=== PATIENT | female | born 1950 | race Caucasian/White ===

== ENCOUNTER 2016-03-31 17:38 | Emergency (ER) | payer OTHER, BC ==
[~2016-03-31] VITALS: Ht 175.3 cm; Wt 105.2 kg
[2016-03-31 17:50] VITALS: BP 132/81
[2016-03-31] MEDS ORDERED: NAPROXEN 500 MG TABLET PO STA (18:49)
--- NOTE | 2016-03-31 19:49 | PHYS DOC ---
Past Medical History Past Medical History: Hypertension, TIA Additional Past Medical Histor: HYPOGLYCEMIA Past Surgical History: Tubal ligation Alcohol Use: Rarely Drug Use: None Adult General Chief Complaint Chief Complaint: HIP PAIN HPI HPI Patient is a 65 year old female with a history of hypertension and TIA who presents today with mild left hip pain that began when she was ambulating in [employer] Patient states she believes she popped her hip out of line. Review of Systems Review of Systems Constitutional: Denies fever or chills [] Musculoskeletal: Left hip pain Integument: Denies rash or skin lesions [] Neurologic: Denies headache, focal weakness or sensory changes [] Endocrine: Denies polyuria or polydipsia [] Current Medications Current Medications Current Medications Medications (Trade) Dose Ordered Sig/Srinivas Start Time Stop Time Status Last Admin Dose Admin Naproxen (Naprosyn) 500 mg 1X STAT 03/31/16 18:49 03/31/16 18:50 DC 03/31/16 18:55 500 MG Allergies Allergies Allergies Coded Allergies Type Severity Reaction Last Updated Verified cetirizine Allergy Unknown PT STATES IT CAUSED HER TIA. 03/31/16 No Physical Exam Physical Exam Constitutional: Well developed, well nourished, no acute distress, non-toxic appearance. [] Skin: Warm, dry, no erythema, no rash. [] Back: No tenderness, no CVA tenderness. [] Extremities: Left hip with no obvious deformity, no edema or ecchymosis, tenderness on palpation of the left lateral hip. Full range of motion to the left hip, adequate internal rotation and external rotation of the hip. Adequate flexion and extension of the left lower extremity. +2 left pedal pulse. Sensation intact to the left lower extremity. Neurologic: Alert and oriented X 3, normal motor function, normal sensory function, no focal deficits noted. [] Psychologic: Affect normal, judgement normal, mood normal. [] Current Patient Data Vital Signs Vital Signs Date Time Temp Pulse Resp B/P Pulse Ox O2 Delivery O2 Flow Rate FiO2 03/31/16 17:50 98.5 80 20 98 Room Air 98.5 EKG EKG [] Radiology/Procedures Radiology/Procedures [] Course & Med Decision Making Course & Med Decision Making Pertinent Labs and Imaging studies reviewed. (See chart for details) Patient is in the ED with left hip pain that began while ambulating at [employer], she believes her hip popped out of place. Left hip x-rays interpreted by Dr. Jackson are negative for any acute findings. Patient was able to get up and ambulating the ED. She was discharged with instructions to take over-the- counter pain relievers as needed. Ice elevation encouraged to the extremity. Follow-up with orthopedic doctor which we provided in the next 7 days. Provided return precautions and discharged in stable condition. Dragon Disclaimer Dragon Disclaimer This electronic medical record was generated, in whole or in part, using a voice recognition dictation system. Departure Departure Impression: Primary Impression: Sprain of left hip Disposition: HOME, SELF-CARE Condition: STABLE Referrals: JOSIAH MCGOWAN (PCP) HERIBERTO QUINTANA MD See him in one week if pain continues Patient Instructions: Hip Pain Additional Instructions: You were seen for left hip sprain. Your x-rays of the hip are normal. Ice and elevate the extremity. Take [id number] pain relievers as needed. Follow- up with the provided doctor in one week. Problem Qualifiers Primary Impression: Sprain of left hip Encounter type: initial encounter Qualified Code: S73.102A - Unspecified sprain of left hip, initial encounter ROCCO DEJESUS APRN Mar 31, 2016 19:49
--- NOTE | 2016-04-01 07:55 | RAD ---
Indication pain. 2 AP views of the pelvis were obtained as well as targeted AP and frog leg views of the left hip. No bony abnormality is seen obtained
== END 2016-03-31 19:52 | disposition home or self-care (01) ==
LOC: ER 17:38
DX: S73.102A Unspecified sprain of left hip, initial encounter (principal); I10 Essential (primary) hypertension; Z86.73 Personal history of transient ischemic attack (TIA), and cerebral infarction without residual deficits; Z98.51 Tubal ligation status; Z88.8 Allergy status to other drugs, medicaments and biological substances; X58.XXXA Exposure to other specified factors, initial encounter; Y93.89 Activity, other specified; Y92.89 Other specified places as the place of occurrence of the external cause; Y99.8 Other external cause status
CPT/HCPCS: 73502; 99284